=== PATIENT | male | born 1965 | race Caucasian/White ===

== ENCOUNTER 2017-09-04 12:58 | Inpatient (IN) | payer BC ==
[2017-09-04] MEDS: Sodium Chloride 0.9% 10 ML Syringe FLUSH PRN (14:44)
[2017-09-04 15:00] LABS: CHLORIDE,CL 99 mmol/L (101-111); SODIUM,NA 136 mmol/L (135-145)
[2017-09-04] MEDS ORDERED: Acetaminophen 325 MG Tab PO ONE (15:04)
[2017-09-04] MEDS ORDERED: Piperacillin/Tazobactam 3.375 GM in Sodium Chloride 0.9% 100 ML IV ONE (16:14)
[2017-09-04] MEDS ORDERED: Sodium Chloride 0.9% 1,000 ML IV ONE (16:16)
[2017-09-04] MEDS ORDERED: Acetaminophen/HYDROcodone 325-10 MG Tab PO PRN (16:44)
[2017-09-04] MEDS ORDERED: Polyethylene Glycol 3350 Powder 17 GM Packet PO PRN (16:44)
[2017-09-04] MEDS ORDERED: Zolpidem 5 MG Tab PO PRN (16:44)
[2017-09-04] MEDS ORDERED: Morphine 2 MG/ML Syringe IVPUSH PRN (16:44)
[2017-09-04] MEDS ORDERED: Magnesium Hydroxide 400 MG/5 ML Susp 30 ML Cup PO PRN (16:44)
[2017-09-04] MEDS ORDERED: Ibuprofen 600 MG Tab PO PRN (16:44)
[2017-09-04] MEDS ORDERED: Acetaminophen 325 MG Tab PO PRN (16:44)
[2017-09-04] MEDS ORDERED: Ondansetron 4 MG/2 ML SDV IVPUSH PRN (16:44)
[2017-09-04] MEDS ORDERED: Sodium Chloride 0.9% 1,000 ML IV SCH ×2 (16:45→17:00)
[2017-09-04] MEDS ORDERED: Potassium Chloride 10 MEQ Tab.ER PO ONE (17:13)
--- NOTE | 2017-09-04 17:19 | PCM.HP ---
H&P History of Present Illness - General Date of Service: 09/04/17 Admit Problem/Dx: Admission Diagnosis/Problem Admission Diagnosis/Problem Sepsis Source of Information: Patient History Limitations: Reports: No Limitations - History of Present Illness Initial Comments - Free Text/Narative: 52 y/o male with PMH of HTN, morbid obesity, chronic lower extremities edema presents to emergency room for having chills, fatigue, body aches, left lower extremity redness, swelling, warmth, and pain with walking. Symptoms started 2 days ago on afternoon with having chills, fatigue, body aches. Next day he noticed redness in the left foot with pain while walking. His highest recorded temperature at home was 99.3 Fahrenheit. Objective coming to the emergency room and receiving vancomycin he noticed some redness started just above the ankle. Patient denies nausea, vomiting, headache, upper respiratory symptoms, ferrous breath, chest pain, palpitation, dizziness, lightheadedness, abdominal pain, diarrhea, urinary symptoms, unilateral weakness/numbness/ tingling, or any other symptoms or concerns. He denies history of MRSA. Patient on weight loss program and he lost about 60 pounds since last October. Patient denies history of diabetes mellitus, heart disease, lung disease, liver disease , any other chronic disease. Only surgery he had his lipectomy in the right arm. In emergency room his temp was 40 Celsius, heart rate 102. WBC 14.1 with left shift. CRP 15.2. Potassium 3.3. Sodium 136. Creatinine 0.8. BUN 11. Glucose 160. Lactic acid 1.7. LFTs are normal. UA is unremarkable. D-dimer 308. Lower extremity ultrasound did not report DVT. Patient received 1 dose of vancomycin and Tylenol in the emergency room. He was started on IV fluid and Zosyn prior to coming to the floor. Left Feet Pain Score (Numeric/FACES): 3 - Related Data Allergies/Adverse Reactions: Allergies Allergy/AdvReac Type Severity Reaction Status Date / Time No Known Allergies Allergy Verified 09/04/17 16:49 Home Medications: Home Meds Aspirin [Halfprin] 81 mg PO DAILY 09/04/17 [History] Atenolol [Atenolol] 100 mg PO DAILY 09/04/17 [History] Cholecalciferol (Vitamin D3) [Vitamin D] 2,000 intnl unit PO DAILY 09/04/17 [ History] Furosemide [Furosemide] 20 mg PO DAILY 09/04/17 [History] Losartan [Cozaar] 100 mg PO DAILY 09/04/17 [History] Multivitamin [Multi-Day Vitamins] 1 tab PO DAILY 09/04/17 [History] Phentermine HCl 37.5 mg PO DAILY 09/04/17 [History] Past Medical History HEENT History: Reports: Impaired Vision Other HEENT History: wears glasses Cardiovascular History: Reports: Hypertension Respiratory History: Reports: None Gastrointestinal History: Reports: None Genitourinary History: Reports: None Musculoskeletal History: Reports: None Neurological History: Reports: None Psychiatric History: Reports: None Endocrine/Metabolic History: Reports: None Hematologic History: Reports: None Immunologic History: Reports: None Oncologic (Cancer) History: Reports: None Dermatologic History: Reports: None - Infectious Disease History Infectious Disease History: Reports: Chicken Pox - Past Surgical History Head Surgeries/Procedures: Reports: None Social & Family History - Tobacco Use Smoking Status *Q: Never Smoker Years of Tobacco use: 10 Used Tobacco, but Quit: Yes Month Tobacco Last Used: 1981 Second Hand Smoke Exposure: No - Caffeine Use Caffeine Use: Reports: Soda, Tea - Alcohol Use Days Per Week of Alcohol Use: 0 - Recreational Drug Use Recreational Drug Use: No Drug Use in Last 12 Months: No - Living Situation & Occupation Living situation: Reports: Occupation: Employed H&P Review of Systems - Review of Systems: Review Of Systems: ROS reveals no pertinent complaints other than HPI. Exam - Exam Exam: See Below - Vital Signs Vital Signs: Last Vital Signs Temp 40 C H 09/04/17 16:15 Pulse 102 H 09/04/17 16:15 Resp 20 09/04/17 16:15 BP 165/82 H 09/04/17 16:15 Pulse Ox 100 09/04/17 16:15 Weight: 109.769 kg - Exam General: Alert, Oriented, Cooperative, Mild Distress (From his chills). No: Moderate Distress, Severe Distress, Sedated, Lethargic, Obtunded HEENT: Conjunctiva Clear, EACs Clear, EOMI, Hearing Intact, Mucosa Moist & [place] , Nares Patent, Normal Nasal Septum, Posterior Pharynx Clear, Pupils Equal, Pupils Reactive, TMs Clear Neck: Supple, Trachea Midline Lungs: Clear to Auscultation, Normal Respiratory Effort Cardiovascular: Regular Rate, Regular Rhythm, Normal S1, Normal S2 GI/Abdominal Exam: Normal Bowel Sounds, Soft, Non-Tender, No Organomegaly, No Distention, No Abnormal Bruit, No Mass (Male) Exam: Deferred Rectal (Males) Exam: Deferred Back Exam: Normal Inspection, Full Range of Motion. No: CVA Tenderness (L), CVA Tenderness (R) Extremities: Normal Range of Motion, No Pedal Edema, Normal Capillary Refill, Other Skin: Warm, Other (left lowr extremity: Shiny, bright red,warm erythema and tenderness of the left foot with milder erythema just abvoe the ankle. no streaking) Neurological: Cranial Nerves Intact, Strength Equal Bilateral, Normal Speech, Normal Tone Neuro Extensive - Mental Status: Alert, Oriented x3, Normal Mood/Affect Neuro Extensive - Motor, Sensory, Reflexes: CN II-XII Intact Psychiatric: Alert, Normal Affect, Normal Mood - Patient Data Result Diagrams: 09/04/17 14:30 09/04/17 14:30 *Q Meaningful Use (ADM) - VTE *Q VTE Criteria *Q: - Stroke *Q Stroke Criteria *Q: - AMI *Q AMI Criteria *Q: - Problem List (1) Sepsis SNOMED Code(s): 63150978 ICD Code: A41.9 - SEPSIS, UNSPECIFIED ORGANISM Status: Acute Priority: High Current Visit: Yes (2) Erysipelas of lower extremity SNOMED Code(s): 843086878 ICD Code: A46 - ERYSIPELAS Status: Acute Priority: High Current Visit: Yes (3) HTN, Essential hypertension SNOMED Code(s): 96719658 ICD Code: I10 - ESSENTIAL (PRIMARY) HYPERTENSION Status: Chronic Current Visit: No Problem List Initiated/Reviewed/Updated: Yes Orders Last 24hrs: Active Orders 24 hr Category Date Time Status CRP [C-REACTIVE PROTEIN] [CHEM] AM Lab 09/05/17 05:11 Ordered CRP [C-REACTIVE PROTEIN] [CHEM] AM Lab 09/06/17 05:11 Ordered Cholecalciferol (Vitamin D3) [Vitamin D3] Med 09/05/17 09:00 Active 20,000 units PO DAILY Piperacillin/Tazobactam [Zosyn] 3.375 gm Med 09/04/17 23:00 Active Sodium Chloride 0.9% [Normal Saline] 100 ml IV Q6H Sodium Chloride 0.9% [Normal Saline] 1,000 ml Med 09/04/17 17:00 Active IV ASDIRECTED Medication Orders Acetaminophen (Tylenol) 650 mg PO Q4H PRN PRN Reason: Pain (Mild 1-3)/fever Hydrocodone Bitart/Acetaminophen ([place] 325-10 Mg) 0.5 tab PO Q4H PRN PRN Reason: Pain (moderate 4-6) Aspirin (Halfprin) 81 mg PO DAILY [facility] Atenolol (Tenormin) 100 mg PO DAILY [facility] Cholecalciferol (Vitamin D3) 20,000 units PO DAILY [facility] Enoxaparin Sodium (Lovenox) 40 mg SUBCUT DAILY KATHY Furosemide (Lasix) 20 mg PO DAILY [facility] Sodium Chloride (Normal Saline) 1,000 mls @ 999 mls/hr IV .BOLUS ONE Stop: 09/04/17 17:16 Last Admin: 09/04/17 16:24 Dose: 999 mls/hr Sodium Chloride (Normal Saline) 1,000 mls @ 999 mls/hr IV .BOLUS KATHY Piperacillin Sod/Tazobactam (Sod 3.375 gm/ Sodium Chloride) 100 mls @ 200 mls/ hr IV Q6H KATHY Sodium Chloride (Normal Saline) 1,000 mls @ 125 mls/hr IV ASDIRECTED KATHY Stop: 09/05/17 00:59 Ibuprofen (Motrin) 600 mg PO Q6H PRN PRN Reason: Fever Losartan Potassium (Cozaar) 100 mg PO DAILY [facility] Magnesium Hydroxide (Milk Of Magnesia) 30 ml PO Q12H PRN PRN Reason: Constipation Morphine Sulfate (Morphine) 2 mg IVPUSH Q2H PRN PRN Reason: Pain (severe 7-10) Multivitamins (Thera) 1 each PO DAILY [facility] Ondansetron HCl (Zofran) 4 mg IVPUSH Q6H PRN PRN Reason: Nausea/Vomiting Polyethylene Glycol (Miralax) 17 gm PO DAILY PRN PRN Reason: Constipation Sodium Chloride (Saline Flush) 10 ml FLUSH ASDIRECTED PRN PRN Reason: Keep Vein Open Last Admin: 09/04/17 14:44 Dose: 10 ml Zolpidem Tartrate (Ambien) 5 mg PO BEDTIME PRN PRN Reason: Sleep Assessment/Plan Comment:: Impression: 52-year-old male with past medical history significant for hypertension, morbid obesity, chronic bilateral lower extremities edema (left more than right) presents with signs and symptoms consistent with erysipelas and sepsis. He has hypokalemia Plan: Patient received 1 dose of vancomycin in emergency room and started on Zosyn -Fluid resuscitation will give 2 L of the normal saline as a bolus and another liter at 125 mL per hour -Continue Zosyn -Left leg elevation -Potassium chloride 40 mEq by mouth once Patient requested to take his own medications and not the hospital medication due to concern about cost. We are okay with taking his on home medications. We will start his blood -Repeat labs in the morning -Continue blood pressure medications Lovenox for DVT prophylaxis Patient is full code Plan of care was discussed with patient and he verbalized understanding agreed with the
[2017-09-04] MEDS ORDERED: ATENOLOL 50 MG PO SCH (17:28)
--- NOTE | 2017-09-04 17:59 | EDM.PDOC ---
Scribed by Alba Pena 09/04/17 [id number] for Marcia Singh NP ED HPI GENERAL MEDICAL PROBLEM - General Chief Complaint: Lower Extremity Injury/Pain Stated Complaint: [id number] SWOLLEN FOOT RED Time Seen by Provider: 09/04/17 13:41 Source of Information: Reports: Patient, EMS Notes Reviewed, RN, RN Notes Reviewed History Limitations: Reports: No Limitations - History of Present Illness INITIAL COMMENTS - FREE TEXT/NARRATIVE: Patient states that night he became achy and chills which were done on Wednesday afternoon. He slept in the chair. History of left lower leg swelling. He woke up with left foot swollen, redness, pain from left foot up to left groin. Denies chest pain, shortness of breath,abdominal pain, nausea, vomiting and headache. Location: Reports: Lower Extremity, Left Quality: Reports: Ache Severity: Mild Improves with: Reports: None Worsens with: Reports: None Associated Symptoms: Reports: No Other Symptoms Left Feet Pain Score (Numeric/FACES): 3 - Related Data Allergies Allergy/AdvReac Type Severity Reaction Status Date / Time No Known Allergies Allergy Verified 09/04/17 16:49 Home Meds: Home Meds Aspirin [Halfprin] 81 mg PO DAILY 09/04/17 [History] Atenolol [Atenolol] 100 mg PO DAILY 09/04/17 [History] Cholecalciferol (Vitamin D3) [Vitamin D] 2,000 intnl unit PO DAILY 09/04/17 [ History] Furosemide [Furosemide] 20 mg PO DAILY 09/04/17 [History] Losartan [Cozaar] 100 mg PO DAILY 09/04/17 [History] Multivitamin [Multi-Day Vitamins] 1 tab PO DAILY 09/04/17 [History] Phentermine HCl 37.5 mg PO DAILY 09/04/17 [History] Past Medical History HEENT History: Reports: Impaired Vision Other HEENT History: wears glasses Cardiovascular History: Reports: Hypertension Respiratory History: Reports: None Gastrointestinal History: Reports: None Genitourinary History: Reports: None Musculoskeletal History: Reports: None Neurological History: Reports: None Psychiatric History: Reports: None Endocrine/Metabolic History: Reports: None Hematologic History: Reports: None Immunologic History: Reports: None Oncologic (Cancer) History: Reports: None Dermatologic History: Reports: None - Infectious Disease History Infectious Disease History: Reports: Chicken Pox - Past Surgical History Head Surgeries/Procedures: Reports: None Social & Family History - Tobacco Use Smoking Status *Q: Never Smoker Years of Tobacco use: 10 Used Tobacco, but Quit: Yes Month Tobacco Last Used: 1981 Second Hand Smoke Exposure: No - Caffeine Use Caffeine Use: Reports: Soda, Tea - Alcohol Use Days Per Week of Alcohol Use: 0 - Recreational Drug Use Recreational Drug Use: No Drug Use in Last 12 Months: No - Living Situation & Occupation Living situation: Reports: Occupation: Employed Review of Systems - Review of Systems Review Of Systems: ROS reveals no pertinent complaints other than HPI. ED EXAM, GENERAL - Physical Exam Exam: See Below Exam Limited By: No Limitations General Appearance: Alert, WD/WN, No Apparent Distress Eye Exam: Bilateral Eye: Normal Inspection Ears: Normal External Exam, Normal Canal, Hearing Grossly Normal, Normal TMs Nose: Normal Inspection, Normal Mucosa, No Blood Throat/Mouth: Normal Inspection, Normal Lips, Normal Teeth, Normal Gums, Normal Oropharynx, Normal Voice, No Airway Compromise Head: Atraumatic, Normocephalic Neck: Normal Inspection, Supple, Non-Tender, Full Range of Motion Respiratory/Chest: No Respiratory Distress, Lungs Clear, Normal Breath Sounds, No Accessory Muscle Use, Chest Non-Tender Cardiovascular: Normal Peripheral Pulses, Regular Rate, Rhythm, No Edema, No Gallop, No JVD, No Murmur, No Rub GI/Abdominal: Normal Bowel Sounds, Soft, Non-Tender, No Organomegaly, No Distention, No Abnormal Bruit, No Mass (Male) Exam: Deferred Rectal (Males) Exam: Deferred Back Exam: Normal Inspection, Full Range of Motion, NT Extremities: Other (left lower leg/foot swelling. Left foot +2 edema.) Neurological: Alert, Oriented, CN II-XII Intact, Normal Cognition, Normal Gait, Normal Reflexes, No Motor/Sensory Deficits Psychiatric: Normal Affect, Normal Mood Skin Exam: Other (redness and warmth to top of left foot and toe. Redness andwarmth now to back side of lower leg and moving up.) Course - Vital Signs Last Recorded V/S: Last Vital Signs Temp 104 F H 09/04/17 16:15 Pulse 102 H 09/04/17 16:15 Resp 20 09/04/17 16:15 BP 165/82 H 09/04/17 16:15 Pulse Ox 100 09/04/17 16:15 - Orders/Labs/Meds Orders: Active Orders 24 hr Category Date Time Status Peripheral IV Care [RC] . DIRECTED Care 09/04/17 13:55 Active CULTURE BLOOD [BC] Stat Lab 09/04/17 14:15 Received CULTURE BLOOD [BC] Stat Lab 09/04/17 14:30 Results Aspirin [Halfprin] Med 09/04/17 16:45 Active 81 mg PO DAILY Furosemide [Lasix] Med 09/05/17 09:00 Active 20 mg PO DAILY Losartan [Cozaar] Med 09/05/17 09:00 Active 100 mg PO DAILY Multivitamins,Therapeutic [Thera] Med 09/05/17 09:00 Active 1 each PO DAILY Sodium Chloride 0.9% [Saline Flush] Med 09/04/17 13:55 Active 10 ml FLUSH ASDIRECTED PRN Blood Culture x2 Reflex Set [OM.PC] Stat Oth 09/04/17 13:55 Ordered Peripheral IV Insertion Adult [OM.PC] Stat Oth 09/04/17 13:55 Ordered Medication Orders Acetaminophen (Tylenol) 650 mg PO Q4H PRN PRN Reason: Pain (Mild 1-3)/fever Hydrocodone Bitart/Acetaminophen ([place] 325-10 Mg) 0.5 tab PO Q4H PRN PRN Reason: Pain (moderate 4-6) Aspirin (Halfprin) 81 mg PO DAILY [facility] Atenolol (Tenormin) 100 mg PO DAILY [facility] Cholecalciferol (Vitamin D3) 2,000 units PO DAILY [facility] Furosemide (Lasix) 20 mg PO DAILY [facility] Sodium Chloride (Normal Saline) 1,000 mls @ 999 mls/hr IV .BOLUS [facility] Piperacillin Sod/Tazobactam (Sod 3.375 gm/ Sodium Chloride) 100 mls @ 200 mls/ hr IV Q6H [facility] Sodium Chloride (Normal Saline) 1,000 mls @ 125 mls/hr IV ASDIRECTED [facility] Stop: 09/05/17 00:59 Ibuprofen (Motrin) 600 mg PO Q6H PRN PRN Reason: Fever Losartan Potassium (Cozaar) 100 mg PO DAILY [facility] Magnesium Hydroxide (Milk Of Magnesia) 30 ml PO Q12H PRN PRN Reason: Constipation Morphine Sulfate (Morphine) 2 mg IVPUSH Q2H PRN PRN Reason: Pain (severe 7-10) Multivitamins (Thera) 1 each PO DAILY [facility] Ondansetron HCl (Zofran) 4 mg IVPUSH Q6H PRN PRN Reason: Nausea/Vomiting Polyethylene Glycol (Miralax) 17 gm PO DAILY PRN PRN Reason: Constipation Rivaroxaban (Xarelto) 10 mg PO [facility]INNER [facility] Sodium Chloride (Saline Flush) 10 ml FLUSH ASDIRECTED PRN PRN Reason: Keep Vein Open Last Admin: 09/04/17 14:44 Dose: 10 ml Zolpidem Tartrate (Ambien) 5 mg PO BEDTIME PRN PRN Reason: Sleep Labs: Laboratory Tests 09/04/17 09/04/17 09/04/17 Range/Units 13:55 14:15 14:30 WBC 14.1 H (5.0-10.0) 10^3/uL RBC 5.63 (4.6-6.2) 10^6/uL Hgb 16.1 (14.0-18.0) g/dL Hct 47.5 (40.0-54.0) % MCV 84.4 (80-100) fL MCH 28.6 (27.0-34.0) pg MCHC 33.9 (33.0-35.0) g/dL Plt Count 215 (150-450) 10^3/uL Neut % (Auto) 83.3 H (42.2-75.2) % Lymph % (Auto) 7.5 L (20.5-50.1) % [place] % (Auto) 7.4 (2-8) % Eos % (Auto) 1.6 (1.0-3.0) % Baso % (Auto) 0.2 (0.0-1.0) % D-Dimer, Quantitative (0-400) ng/mL Sodium (135-145) mmol/L Potassium (3.6-5.0) mmol/L Chloride (101-111) mmol/L Carbon Dioxide (21.0-31.0) mmol/L Anion Gap BUN (7-18) mg/dL Creatinine (0.6-1.3) mg/dL Est Cr Clr Drug Dosing mL/min Estimated GFR (MDRD) BUN/Creatinine Ratio Glucose (74-105) mg/dL Lactic Acid (0.5-2.2) mmol/L Calcium (8.4-10.2) mg/dl Total Bilirubin (0.2-1.0) mg/dL AST (10-42) IU/L ALT (10-60) IU/L Alkaline Phosphatase (42-121) IU/L C-Reactive Protein 15.2 H (0.0-1.3) mg/dL Total Protein (6.7-8.2) g/dl Albumin (3.2-5.5) g/dl Globulin Albumin/Globulin Ratio Urine Color Yellow (YELLOW) Urine Appearance Slightly cloudy (CLEAR) Urine pH 5.5 (5.0-9.0) Ur Specific [place] 1.025 (1.005-1.030) Urine Protein Negative (NEGATIVE) Urine Glucose (UA) Negative (NEGATIVE) Urine Ketones Negative (NEGATIVE) Urine Occult Blood Negative (NEGATIVE) Urine Nitrite Negative (NEGATIVE) Urine Bilirubin Negative (NEGATIVE) Urine Urobilinogen 1.0 (0.2-1.0) mg/dL Ur Leukocyte Esterase Negative (NEGATIVE) Urine RBC 0-5 /HPF Urine WBC 5-10 H (0-5/HPF) /HPF Ur Epithelial Cells Rare /HPF Amorphous Sediment Occasional (0/HPF) /HPF Urine Bacteria Rare (0-FEW/HPF) /HPF Urine Mucus Few H /LPF 09/04/17 09/04/17 09/04/17 Range/Units 14:30 14:30 14:30 WBC (5.0-10.0) 10^3/uL RBC (4.6-6.2) 10^6/uL Hgb (14.0-18.0) g/dL Hct (40.0-54.0) % MCV (80-100) fL MCH (27.0-34.0) pg MCHC (33.0-35.0) g/dL Plt Count (150-450) 10^3/uL Neut % (Auto) (42.2-75.2) % Lymph % (Auto) (20.5-50.1) % [place] % (Auto) (2-8) % Eos % (Auto) (1.0-3.0) % Baso % (Auto) (0.0-1.0) % D-Dimer, Quantitative 308 (0-400) ng/mL Sodium 136 (135-145) mmol/L Potassium 3.3 L (3.6-5.0) mmol/L Chloride 99 L (101-111) mmol/L Carbon Dioxide 28.0 (21.0-31.0) mmol/L Anion Gap 12.3 BUN 11 (7-18) mg/dL Creatinine 0.8 (0.6-1.3) mg/dL Est Cr Clr Drug Dosing 104.50 mL/min Estimated GFR (MDRD) > 60 BUN/Creatinine Ratio 13.75 Glucose 160 H (74-105) mg/dL Lactic Acid 1.7 (0.5-2.2) mmol/L Calcium 8.7 (8.4-10.2) mg/dl Total Bilirubin 0.9 (0.2-1.0) mg/dL AST 25 (10-42) IU/L ALT 31 (10-60) IU/L Alkaline Phosphatase 57 (42-121) IU/L C-Reactive Protein (0.0-1.3) mg/dL Total Protein 6.3 L (6.7-8.2) g/dl Albumin 3.7 (3.2-5.5) g/dl Globulin 2.6 Albumin/Globulin Ratio 1.42 Urine Color (YELLOW) Urine Appearance (CLEAR) Urine pH (5.0-9.0) Ur Specific [place] (1.005-1.030) Urine Protein (NEGATIVE) Urine Glucose (UA) (NEGATIVE) Urine Ketones (NEGATIVE) Urine Occult Blood (NEGATIVE) Urine Nitrite (NEGATIVE) Urine Bilirubin (NEGATIVE) Urine Urobilinogen (0.2-1.0) mg/dL Ur Leukocyte Esterase (NEGATIVE) Urine RBC /HPF Urine WBC (0-5/HPF) /HPF Ur Epithelial Cells /HPF Amorphous Sediment (0/HPF) /HPF Urine Bacteria (0-FEW/HPF) /HPF Urine Mucus /LPF Meds: Medications Generic Name Dose Route Start Last Admin Trade Name Freq PRN Reason Stop Dose Admin Acetaminophen 650 mg 09/04/17 16:44 Tylenol PO Q4H PRN Pain (Mild 1-3)/fever Hydrocodone Bitart/Acetaminophen 0.5 tab 09/04/17 16:44 [place] 325-10 Mg PO Q4H PRN Pain (moderate 4-6) Aspirin 81 mg 09/04/17 16:45 Halfprin PO DAILY [facility] Atenolol 100 mg 09/04/17 17:28 Tenormin PO DAILY [facility] Cholecalciferol 2,000 units 09/05/17 09:00 Vitamin D3 PO DAILY [facility] Furosemide 20 mg 09/05/17 09:00 Lasix PO DAILY [facility] Sodium Chloride 1,000 mls @ 999 mls/hr 09/04/17 16:45 Normal Saline IV .BOLUS [facility] Piperacillin Sod/Tazobactam 100 mls @ 200 mls/hr 09/04/17 23:00 Sod 3.375 gm/ Sodium Chloride IV Q6H [facility] Sodium Chloride 1,000 mls @ 125 mls/hr 09/04/17 17:00 Normal Saline IV 09/05/17 00:59 ASDIRECTED [facility] Ibuprofen 600 mg 09/04/17 16:44 Motrin PO Q6H PRN Fever Losartan Potassium 100 mg 09/05/17 09:00 Cozaar PO DAILY [facility] Magnesium Hydroxide 30 ml 09/04/17 16:44 Milk Of Magnesia PO Q12H PRN Constipation Morphine Sulfate 2 mg 09/04/17 16:44 Morphine IVPUSH Q2H PRN Pain (severe 7-10) Multivitamins 1 each 09/05/17 09:00 Thera PO DAILY [facility] Ondansetron HCl 4 mg 09/04/17 16:44 Zofran IVPUSH Q6H PRN Nausea/Vomiting Polyethylene Glycol 17 gm 09/04/17 16:44 Miralax PO DAILY PRN Constipation Rivaroxaban 10 mg 09/04/17 18:00 Xarelto PO [facility]DINNER [facility] Sodium Chloride 10 ml 09/04/17 13:55 09/04/17 14:44 Saline Flush FLUSH 10 ml ASDIRECTED PRN Administration Keep Vein Open Zolpidem Tartrate 5 mg 09/04/17 16:44 Ambien PO BEDTIME PRN Sleep Discontinued Medications Generic Name Dose Route Start Last Admin Trade Name Freq PRN Reason Stop Dose Admin Acetaminophen 650 mg 09/04/17 15:04 09/04/17 15:08 Tylenol PO 09/04/17 15:05 650 mg NOW ONE Administration Atenolol 100 mg 09/05/17 09:00 Tenormin PO DAILY [facility] Cholecalciferol 20,000 units 09/05/17 09:00 Vitamin D3 PO DAILY [facility] Enoxaparin Sodium 40 mg 09/05/17 09:00 Lovenox SUBCUT DAILY [facility] Vancomycin HCl 1.5 gm/ Sodium 250 mls @ 167 mls/hr 09/04/17 13:56 09/04/17 14 :44 Chloride IV 09/04/17 15:25 167 mls/hr ONETIME ONE Administration Piperacillin Sod/Tazobactam 100 mls @ 200 mls/hr 09/04/17 16:14 09/04/17 16: 24 Sod 3.375 gm/ Sodium Chloride IV 09/04/17 16:43 200 mls/hr ONETIME ONE Administration Sodium Chloride 1,000 mls @ 999 mls/hr 09/04/17 16:16 09/04/17 16:24 Normal Saline IV 09/04/17 17:16 999 mls/hr .BOLUS ONE Administration Potassium Chloride 40 meq 09/04/17 17:13 Klor-Con 10 PO 09/04/17 17:14 ONETIME ONE - Radiology Interpretation Free Text/Narrative:: Duplex doppler: Negative duplex left lower leg. See rad report. Departure - Departure Time of Disposition: 16:34 Disposition: Admitted As Inpatient 66 Condition: Fair Clinical Impression: Cellulitis Qualifiers: Site of cellulitis: extremity Site of cellulitis of extremity: lower extremity Laterality: left Qualified Code(s): L03.116 - Cellulitis of left lower limb Fever Qualifiers: Fever type: unspecified Qualified Code(s): R50.9 - Fever, unspecified - Discharge Information - My Orders Last 24 Hours: My Active Orders 09/04/17 13:55 Peripheral IV Care [RC] . DIRECTED Sodium Chloride 0.9% [Saline Flush] 10 ml FLUSH ASDIRECTED PRN Blood Culture x2 Reflex Set [OM.PC] Stat Peripheral IV Insertion Adult [OM.PC] Stat 09/04/17 14:15 CULTURE BLOOD [BC] Stat 09/04/17 14:30 CULTURE BLOOD [BC] Stat - Assessment/Plan Last 24 Hours: My Active Orders 09/04/17 13:55 Peripheral IV Care [RC] . DIRECTED Sodium Chloride 0.9% [Saline Flush] 10 ml FLUSH ASDIRECTED PRN Blood Culture x2 Reflex Set [OM.PC] Stat Peripheral IV Insertion Adult [OM.PC] Stat 09/04/17 14:15 CULTURE BLOOD [BC] Stat 09/04/17 14:30 CULTURE BLOOD [BC] Stat I have read and agree with the documentation that has been completed regarding this visit. By signing this record, I attest that the documentation was completed in my physical presence and is an accurate record of the encounter.
[2017-09-04] MEDS: Aspirin 81 MG Tab.EC PO SCH (18:13)
[2017-09-04] MEDS: Rivaroxaban 10 MG Tab PO SCH (18:54)
[2017-09-04] MEDS: VITAMIN D 2000 UNIT PO SCH (22:14)
[2017-09-04] MEDS: Piperacillin/Tazobactam 3.375 GM in Sodium Chloride 0.9% 100 ML IV SCH (22:36)
[2017-09-05] MEDS: Sodium Chloride 0.9% 10 ML Syringe FLUSH PRN ×6 (04:36→23:29)
[2017-09-05] MEDS: Piperacillin/Tazobactam 3.375 GM in Sodium Chloride 0.9% 100 ML IV SCH ×4 (04:37→22:55)
[2017-09-05 07:32] LABS: CHLORIDE,CL 104 mmol/L (101-111); SODIUM,NA 138 mmol/L (135-145)
[2017-09-05] MEDS ORDERED: Atenolol 50 MG Tab PO SCH (09:00)
[2017-09-05] MEDS ORDERED: Multivitamins,Therapeutic Tab PO SCH (09:00)
[2017-09-05] MEDS ORDERED: LOSARTAN 100 MG PO SCH ×2 (09:00)
[2017-09-05] MEDS ORDERED: Cholecalciferol (Vitamin D3) 400 Unit Tab PO SCH ×2 (09:00)
[2017-09-05] MEDS ORDERED: Losartan 50 MG Tab PO SCH (09:00)
[2017-09-05] MEDS ORDERED: VITAMIN D 2000 UNIT PO SCH (09:00)
[2017-09-05] MEDS ORDERED: FUROSEMIDE 20 MG PO SCH (09:00)
[2017-09-05] MEDS ORDERED: Enoxaparin 40 MG/0.4 ML Syringe SUBCUT SCH (09:00)
[2017-09-05] MEDS: Aspirin 81 MG Tab.EC PO SCH (09:47)
--- NOTE | 2017-09-05 10:24 | PCM.PN ---
- General Info Date of Service: 09/05/17 Admission Dx/Problem (Free Text): Admission Diagnosis/Problem Admission Diagnosis/Problem Sepsis Subjective Update: Darius stated that he is feeling better. He thinks his foot redness is improving. He still complaining of leg pain when he walks only. Overnight he denies fever, chills, nausea, vomiting, chest pain, shortness breath, diarrhea, abdominal pain , any other symptoms or complaint. He has been active and ambulating. - Patient Data Vitals - Most Recent: Last Vital Signs Temp 36.2 C 09/05/17 07:49 Pulse 72 09/05/17 07:49 Resp 20 09/05/17 07:49 BP 142/70 H 09/05/17 07:49 Pulse Ox 100 09/05/17 07:49 Weight - Most Recent: 109.769 kg I&O - Last 24 Hours: Intake & Output 09/04/17 09/05/17 09/05/17 22:59 06:59 14:59 Intake Total 2428 1598 Output Total 775 400 Balance 1653 1198 Lab Results Last 24 Hours: Laboratory Results - last 24 hr 09/05/17 09/05/17 09/05/17 Range/Units 06:57 06:57 06:57 WBC 11.4 H (5.0-10.0) 10^3/uL RBC 5.23 (4.6-6.2) 10^6/uL Hgb 14.7 (14.0-18.0) g/dL Hct 44.4 (40.0-54.0) % MCV 84.9 (80-100) fL MCH 28.1 (27.0-34.0) pg MCHC 33.1 (33.0-35.0) g/dL Plt Count 187 (150-450) 10^3/uL Neut % (Auto) 82.7 H (42.2-75.2) % Lymph % (Auto) 7.3 L (20.5-50.1) % [place] % (Auto) 9.3 H (2-8) % Eos % (Auto) 0.4 L (1.0-3.0) % Baso % (Auto) 0.3 (0.0-1.0) % Sodium 138 (135-145) mmol/L Potassium 4.2 (3.6-5.0) mmol/L Chloride 104 (101-111) mmol/L Carbon Dioxide 27.0 (21.0-31.0) mmol/L Anion Gap 11.2 BUN 9 (7-18) mg/dL Creatinine 0.8 (0.6-1.3) mg/dL Est Cr Clr Drug Dosing 104.50 mL/min Estimated GFR (MDRD) > 60 Glucose 127 H (74-105) mg/dL Calcium 8.4 (8.4-10.2) mg/dl C-Reactive Protein 15.0 H (0.0-1.3) mg/dL Med Orders - Current: Current Medications Acetaminophen (Tylenol) 650 mg PO Q4H PRN PRN Reason: Pain (Mild 1-3)/fever Hydrocodone Bitart/Acetaminophen ([place] 325-10 Mg) 0.5 tab PO Q4H PRN PRN Reason: Pain (moderate 4-6) Aspirin (Halfprin) 81 mg PO DAILY [facility] Last Admin: 09/05/17 09:47 Dose: Not Given Atenolol (Tenormin) 100 mg PO DAILY@1800 [facility] Furosemide (Lasix) 20 mg PO DAILY [facility] Last Admin: 09/05/17 09:48 Dose: Not Given Piperacillin Sod/Tazobactam (Sod 3.375 gm/ Sodium Chloride) 100 mls @ 200 mls/ hr IV Q6H [facility] Last Infusion: 09/05/17 05:08 Dose: Infused Ibuprofen (Motrin) 600 mg PO Q6H PRN PRN Reason: Fever Last Admin: 09/04/17 18:54 Dose: 600 mg Magnesium Hydroxide (Milk Of Magnesia) 30 ml PO Q12H PRN PRN Reason: Constipation Morphine Sulfate (Morphine) 2 mg IVPUSH Q2H PRN PRN Reason: Pain (severe 7-10) Multivitamins (Thera) 1 each PO DAILY [facility] Last Admin: 09/05/17 09:49 Dose: Not Given Patients Own Med - (Losartan 100 Mg) 0 each PO DAILY [facility] Last Admin: 09/05/17 09:48 Dose: Not Given Patients Own Med - (Vitamin D 2000 Units) 0 each PO DAILY@1800 [facility] Last Admin: 09/04/17 22:14 Dose: Not Given Non-Formulary Medication (Lutein/Zeaxanthin [Lutein-Zeaxanthin 25-5 Mg Sfgl]) 1 each PO BID [facility] Non-Formulary Medication (Vitamin B Complex & Vit C No.4 [Super B Complex]) 150 mg PO DAILY [facility] Ondansetron HCl (Zofran) 4 mg IVPUSH Q6H PRN PRN Reason: Nausea/Vomiting Polyethylene Glycol (Miralax) 17 gm PO DAILY PRN PRN Reason: Constipation Rivaroxaban (Xarelto) 10 mg PO WITHDINNER [facility] Last Admin: 09/04/17 18:54 Dose: 10 mg Sodium Chloride (Saline Flush) 10 ml FLUSH ASDIRECTED PRN PRN Reason: Keep Vein Open Last Admin: 09/05/17 05:09 Dose: 10 ml Zolpidem Tartrate (Ambien) 5 mg PO BEDTIME PRN PRN Reason: Sleep Discontinued Medications Acetaminophen (Tylenol) 650 mg PO NOW ONE Stop: 09/04/17 15:05 Last Admin: 09/04/17 15:08 Dose: 650 mg Atenolol (Tenormin) 100 mg PO DAILY [facility] Atenolol (Tenormin) 100 mg PO DAILY [facility] Last Admin: 09/04/17 18:14 Dose: 100 mg Cholecalciferol (Vitamin D3) 20,000 units PO DAILY [facility] Cholecalciferol (Vitamin D3) 2,000 units PO DAILY [facility] Enoxaparin Sodium (Lovenox) 40 mg SUBCUT DAILY [facility] Vancomycin HCl 1.5 gm/ Sodium (Chloride) 250 mls @ 167 mls/hr IV ONETIME ONE Stop: 09/04/17 15:25 Last Admin: 09/04/17 14:44 Dose: 167 mls/hr Piperacillin Sod/Tazobactam (Sod 3.375 gm/ Sodium Chloride) 100 mls @ 200 mls/ hr IV ONETIME ONE Stop: 09/04/17 16:43 Last Infusion: 09/04/17 17:58 Dose: Infused Sodium Chloride (Normal Saline) 1,000 mls @ 999 mls/hr IV .BOLUS ONE Stop: 09/04/17 17:16 Last Infusion: 09/04/17 18:20 Dose: Infused Sodium Chloride (Normal Saline) 1,000 mls @ 999 mls/hr IV .BOLUS [facility] Last Admin: 09/04/17 18:24 Dose: 999 mls/hr Sodium Chloride (Normal Saline) 1,000 mls @ 125 mls/hr IV ASDIRECTED [facility] Stop: 09/05/17 00:59 Last Infusion: 09/05/17 04:11 Dose: Infused Losartan Potassium (Cozaar) 100 mg PO DAILY [facility] Patients Own Med (Losartan 100 Mg) 0 each PO DAILY [facility] Patients Own Med - (Vitamin D 2000 Units) 0 each PO DAILY [facility] Potassium Chloride (Klor-Con 10) 40 meq PO ONETIME ONE Stop: 09/04/17 17:14 Last Admin: 09/04/17 18:55 Dose: 40 meq - Exam General: Alert, Oriented, Cooperative, No Acute Distress. No: Mild Distress, Moderate Distress, Severe Distress, Sedated, Lethargic, Obtunded HEENT: Pupils Equal, Pupils Reactive, EOMI, Mucous Membr. Moist/[place] Neck: Supple, Trachea Midline, No JVD Lungs: Clear to Auscultation, Normal Respiratory Effort Cardiovascular: Regular Rate, Regular Rhythm GI/Abdominal Exam: Normal Bowel Sounds, Soft, Non-Tender, No Organomegaly, No Distention, No Abnormal Bruit, No Mass (Male) Exam: Deferred Back Exam: Normal Inspection, Full Range of Motion. No: CVA Tenderness (L), CVA Tenderness (R) Extremities: Normal Range of Motion, Normal Capillary Refill Skin: Rash (left lowr extremity: Shiny, bright red,warm erythema, and tenderness of the left foot which they improved from yesterday. erythema just abvoe the ankle mildly worse. no streaking)). No: Ecchymosis Neurological: No New Focal Deficit Psy/Mental Status: Alert, Normal Affect, Normal Mood - Problem List & Annotations (1) Cellulitis SNOMED Code(s): 988474307 Code(s): L03.90 - CELLULITIS, UNSPECIFIED Status: Acute Current Visit: Yes Qualifiers: Site of cellulitis: extremity Site of cellulitis of extremity: lower extremity Laterality: left Qualified Code(s): L03.116 - Cellulitis of left lower limb (2) Fever SNOMED Code(s): 744644988 Code(s): R50.9 - FEVER, UNSPECIFIED Status: Acute Current Visit: Yes Qualifiers: Fever type: unspecified Qualified Code(s): R50.9 - Fever, unspecified (3) HTN, Essential hypertension SNOMED Code(s): 38835335 Code(s): I10 - ESSENTIAL (PRIMARY) HYPERTENSION Status: Acute Current Visit: No - Problem List Review Problem List Initiated/Reviewed/Updated: Yes - My Orders Last 24 Hours: My Active Orders 09/04/17 18:00 Rivaroxaban [Xarelto] 10 mg PO WITHDINNER 09/04/17 20:00 Non-Formulary Medication [NF Drug] 0 each PO DAILY@1800 09/04/17 23:00 Piperacillin/Tazobactam [Zosyn] 3.375 gm Sodium Chloride 0.9% [Normal Saline] 100 ml IV Q6H 09/05/17 09:00 Non-Formulary Medication [NF Drug] 0 each PO DAILY 09/05/17 18:00 Atenolol [Tenormin] 100 mg PO DAILY@1800 09/05/17 21:00 Lutein/Zeaxanthin [Lutein-Zeaxanthin 25-5 mg Sfgl] 1 each PO BID 09/06/17 05:11 BASIC METABOLIC PANEL,BMP [CHEM] AM CBC WITH AUTO DIFF [HEME] AM CRP [C-REACTIVE PROTEIN] [CHEM] AM CRP [C-REACTIVE PROTEIN] [CHEM] AM 09/06/17 09:00 Vitamin B Complex & Vit C No.4 [Super B Complex] 150 mg PO DAILY - Plan Plan:: Impression: 52-year-old male with past medical history significant for hypertension, morbid obesity, chronic bilateral lower extremities edema (left more than right) presents with signs and symptoms consistent with erysipelas and sepsis. -Hypokalemia, resolved -Blood culture grew gram-positive diplococci Plan: Patient received 1 dose of vancomycin in emergency room and started on Zosyn Fluid resuscitation of 3 L of normal saline was received on admission -Continue Zosyn -Left leg elevation -Repeat labs in the morning Patient declined Lovenox for DVT prophylaxis because he does not want shots but wanted xarelto for DVT prophylaxis Patient is full code
[2017-09-05] MEDS ORDERED: Aspirin 81 MG Tab.EC PO SCH (18:00)
[2017-09-05] MEDS: ASPIRIN 81 MG PO SCH (18:06)
[2017-09-05] MEDS: MINERALS PO SCH (18:08)
[2017-09-05] MEDS: LUTEIN PO SCH (18:08)
[2017-09-05] MEDS: VIT A C PO SCH (18:08)
[2017-09-05] MEDS: [UNRECOGNIZED DRUG - OTHER] PO SCH (18:08)
[2017-09-05] MEDS: VITAMIN D 2000 UNIT PO SCH (18:09)
[2017-09-05] MEDS: ATENOLOL 50 MG PO SCH (18:12)
[2017-09-05] MEDS: Rivaroxaban 10 MG Tab PO SCH (18:19)
[2017-09-06] MEDS: Sodium Chloride 0.9% 10 ML Syringe FLUSH PRN ×4 (05:08→17:40)
[2017-09-06] MEDS: Piperacillin/Tazobactam 3.375 GM in Sodium Chloride 0.9% 100 ML IV SCH ×4 (05:10→22:54)
[2017-09-06] MEDS ORDERED: LOSARTAN 100 MG PO SCH ×2 (06:30→11:03)
[2017-09-06] MEDS ORDERED: [UNRECOGNIZED DRUG - OTHER] PO SCH (06:30)
[2017-09-06] MEDS: FUROSEMIDE 20 MG PO SCH (06:38)
[2017-09-06] MEDS: [UNRECOGNIZED DRUG - OTHER] PO SCH (06:43)
[2017-09-06] MEDS: VIT A C PO SCH ×2 (06:46→18:10)
[2017-09-06] MEDS: LUTEIN PO SCH ×2 (06:46→18:10)
[2017-09-06] MEDS: [UNRECOGNIZED DRUG - OTHER] PO SCH ×2 (06:46→18:10)
[2017-09-06] MEDS: MINERALS PO SCH ×2 (06:46→18:10)
[2017-09-06] MEDS: Multivitamins,Therapeutic Tab PO SCH (06:47)
[2017-09-06 07:16] LABS: CHLORIDE,CL 102 mmol/L (101-111); SODIUM,NA 138 mmol/L (135-145)
--- NOTE | 2017-09-06 08:32 | PCM.PN ---
- General Info Date of Service: 09/06/17 Admission Dx/Problem (Free Text): Admission Diagnosis/Problem Admission Diagnosis/Problem Sepsis Subjective Update: Darius stated that he is feeling better. He thinks his foot redness is improving. He still complaining of leg pain when he walks only. the pain is still sever when he start the walk for the first few minutes. Overnight he denies fever, chills, nausea, vomiting, chest pain, shortness of breath, diarrhea, abdominal pain, any other symptoms or complaint. He has been active and ambulating. - Patient Data Vitals - Most Recent: Last Vital Signs Temp 36.6 C 09/06/17 08:03 Pulse 72 09/06/17 08:03 Resp 20 09/06/17 08:03 BP 157/78 H 09/06/17 08:03 Pulse Ox 100 09/06/17 08:03 Weight - Most Recent: 109.769 kg I&O - Last 24 Hours: Intake & Output 09/05/17 09/06/17 09/06/17 22:59 06:59 14:59 Intake Total 338 503 Output Total 3250 1100 Balance -2912 -597 Lab Results Last 24 Hours: Laboratory Results - last 24 hr 09/06/17 09/06/17 09/06/17 Range/Units 06:28 06:28 06:28 WBC 12.8 H (5.0-10.0) 10^3/uL RBC 5.54 (4.6-6.2) 10^6/uL Hgb 15.7 (14.0-18.0) g/dL Hct 46.6 (40.0-54.0) % MCV 84.1 (80-100) fL MCH 28.3 (27.0-34.0) pg MCHC 33.7 (33.0-35.0) g/dL Plt Count 254 (150-450) 10^3/uL Neut % (Auto) 72.6 (42.2-75.2) % Lymph % (Auto) 11.7 L (20.5-50.1) % [place] % (Auto) 13.2 H (2-8) % Eos % (Auto) 2.2 (1.0-3.0) % Baso % (Auto) 0.3 (0.0-1.0) % Sodium 138 (135-145) mmol/L Potassium 4.1 (3.6-5.0) mmol/L Chloride 102 (101-111) mmol/L Carbon Dioxide 26.0 (21.0-31.0) mmol/L Anion Gap 14.1 BUN 13 (7-18) mg/dL Creatinine 0.9 (0.6-1.3) mg/dL Est Cr Clr Drug Dosing 92.89 mL/min Estimated GFR (MDRD) > 60 Glucose 120 H (74-105) mg/dL Calcium 8.8 (8.4-10.2) mg/dl C-Reactive Protein 15.4 H (0.0-1.3) mg/dL Med Orders - Current: Current Medications Acetaminophen (Tylenol) 650 mg PO Q4H PRN PRN Reason: Pain (Mild 1-3)/fever Hydrocodone Bitart/Acetaminophen ([place] 325-10 Mg) 0.5 tab PO Q4H PRN PRN Reason: Pain (moderate 4-6) Aspirin (Halfprin) 81 mg PO DAILY@1800 [facility] Last Admin: 09/05/17 18:06 Dose: 81 mg Atenolol (Tenormin) 100 mg PO DAILY@1800 [facility] Last Admin: 09/05/17 18:12 Dose: 100 mg Furosemide (Lasix) 20 mg PO DAILY@0630 [facility] Last Admin: 09/06/17 06:38 Dose: 20 mg Piperacillin Sod/Tazobactam (Sod 3.375 gm/ Sodium Chloride) 100 mls @ 200 mls/ hr IV Q6H [facility] Last Infusion: 09/06/17 05:50 Dose: Infused Ibuprofen (Motrin) 600 mg PO Q6H PRN PRN Reason: Fever Last Admin: 09/04/17 18:54 Dose: 600 mg Magnesium Hydroxide (Milk Of Magnesia) 30 ml PO Q12H PRN PRN Reason: Constipation Morphine Sulfate (Morphine) 2 mg IVPUSH Q2H PRN PRN Reason: Pain (severe 7-10) Multivitamins (Thera) 1 each PO DAILY@0630 [facility] Last Admin: 09/06/17 06:47 Dose: Not Given Multivitamins/Minerals (I-Nnamdi) 1 each PO BID@0630,1800 [facility] Last Admin: 09/06/17 06:46 Dose: 1 each Patients Own Med - (Vitamin D 2000 Units) 0 each PO DAILY@1800 [facility] Last Admin: 09/05/17 18:09 Dose: 1 each Patients Own Med - (Losartan 100 Mg) 0 each PO DAILY@0630 [facility] Last Admin: 09/06/17 06:47 Dose: 1 each Ondansetron HCl (Zofran) 4 mg IVPUSH Q6H PRN PRN Reason: Nausea/Vomiting Polyethylene Glycol (Miralax) 17 gm PO DAILY PRN PRN Reason: Constipation Rivaroxaban (Xarelto) 10 mg PO WITHDINNER [facility] Last Admin: 09/05/17 18:19 Dose: 10 mg Sodium Chloride (Saline Flush) 10 ml FLUSH ASDIRECTED PRN PRN Reason: Keep Vein Open Last Admin: 09/06/17 05:51 Dose: 10 ml Vitamin B Complex (Vitamin B Complex) 0 each PO DAILY@0630 [facility] Last Admin: 09/06/17 06:43 Dose: 1 each Zolpidem Tartrate (Ambien) 5 mg PO BEDTIME PRN PRN Reason: Sleep Discontinued Medications Acetaminophen (Tylenol) 650 mg PO NOW ONE Stop: 09/04/17 15:05 Last Admin: 09/04/17 15:08 Dose: 650 mg Aspirin (Halfprin) 81 mg PO DAILY [facility] Last Admin: 09/05/17 09:47 Dose: Not Given Atenolol (Tenormin) 100 mg PO DAILY [facility] Atenolol (Tenormin) 100 mg PO DAILY [facility] Last Admin: 09/04/17 18:14 Dose: 100 mg Cholecalciferol (Vitamin D3) 20,000 units PO DAILY [facility] Cholecalciferol (Vitamin D3) 2,000 units PO DAILY [facility] Enoxaparin Sodium (Lovenox) 40 mg SUBCUT DAILY [facility] Furosemide (Lasix) 20 mg PO DAILY [facility] Last Admin: 09/05/17 09:48 Dose: Not Given Vancomycin HCl 1.5 gm/ Sodium (Chloride) 250 mls @ 167 mls/hr IV ONETIME ONE Stop: 09/04/17 15:25 Last Admin: 09/04/17 14:44 Dose: 167 mls/hr Piperacillin Sod/Tazobactam (Sod 3.375 gm/ Sodium Chloride) 100 mls @ 200 mls/ hr IV ONETIME ONE Stop: 09/04/17 16:43 Last Infusion: 09/04/17 17:58 Dose: Infused Sodium Chloride (Normal Saline) 1,000 mls @ 999 mls/hr IV .BOLUS ONE Stop: 09/04/17 17:16 Last Infusion: 09/04/17 18:20 Dose: Infused Sodium Chloride (Normal Saline) 1,000 mls @ 999 mls/hr IV .BOLUS [facility] Last Admin: 09/04/17 18:24 Dose: 999 mls/hr Sodium Chloride (Normal Saline) 1,000 mls @ 125 mls/hr IV ASDIRECTED [facility] Stop: 09/05/17 00:59 Last Infusion: 09/05/17 04:11 Dose: Infused Losartan Potassium (Cozaar) 100 mg PO DAILY [facility] Multivitamins (Thera) 1 each PO DAILY [facility] Last Admin: 09/05/17 09:49 Dose: Not Given Patients Own Med (Losartan 100 Mg) 0 each PO DAILY [facility] Patients Own Med - (Vitamin D 2000 Units) 0 each PO DAILY [facility] Patients Own Med - (Losartan 100 Mg) 0 each PO DAILY [facility] Last Admin: 09/05/17 09:48 Dose: Not Given Potassium Chloride (Klor-Con 10) 40 meq PO ONETIME ONE Stop: 09/04/17 17:14 Last Admin: 09/04/17 18:55 Dose: 40 meq Vitamin B Complex (Vitamin B Complex) 0 each PO DAILY@0630 [facility] - Exam General: Alert, Oriented, Cooperative, No Acute Distress. No: Mild Distress, Moderate Distress, Severe Distress, Sedated, Lethargic, Obtunded HEENT: Pupils Equal, Pupils Reactive, EOMI, Mucous Membr. Moist/[place] Neck: Supple, Trachea Midline, No JVD Lungs: Clear to Auscultation, Normal Respiratory Effort Cardiovascular: Regular Rate, Regular Rhythm GI/Abdominal Exam: Normal Bowel Sounds, Soft, Non-Tender, No Organomegaly, No Distention, No Abnormal Bruit, No Mass (Male) Exam: Deferred Back Exam: Normal Inspection, Full Range of Motion Extremities: Normal Range of Motion, Normal Capillary Refill Skin: Ecchymosis, Other (left lowr extremity: Shiny, bright red,warm erythema, and tenderness of the left foot which they slightly improved from yesterday. erythema just abvoe the ankle mildly worse. no streaking) - Problem List & Annotations (1) Cellulitis SNOMED Code(s): 599208914 Code(s): L03.90 - CELLULITIS, UNSPECIFIED Status: Acute Current Visit: Yes Qualifiers: Site of cellulitis: extremity Site of cellulitis of extremity: lower extremity Laterality: left Qualified Code(s): L03.116 - Cellulitis of left lower limb (2) Fever SNOMED Code(s): 211544802 Code(s): R50.9 - FEVER, UNSPECIFIED Status: Acute Current Visit: Yes Qualifiers: Fever type: unspecified Qualified Code(s): R50.9 - Fever, unspecified (3) HTN, Essential hypertension SNOMED Code(s): 06098115 Code(s): I10 - ESSENTIAL (PRIMARY) HYPERTENSION Status: Acute Current Visit: No - Problem List Review Problem List Initiated/Reviewed/Updated: Yes - My Orders Last 24 Hours: My Active Orders 09/05/17 18:00 Aspirin [Halfprin] 81 mg PO DAILY@1800 Atenolol [Tenormin] 100 mg PO DAILY@1800 Lutein/Minerals/Vit A,C & E [I-Nnamdi] 1 each PO BID@0630,1800 09/06/17 06:30 Furosemide [Lasix] 20 mg PO DAILY@0630 Multivitamins,Therapeutic [Thera] 1 each PO DAILY@0630 Non-Formulary Medication [NF Drug] 0 each PO DAILY@0630 Vitamin B Complex 0 each PO DAILY@0630 09/07/17 05:11 CBC WITH AUTO DIFF [HEME] AM CRP [C-REACTIVE PROTEIN] [CHEM] AM - Plan Plan:: Impression: 52-year-old male with past medical history significant for hypertension, morbid obesity, chronic bilateral lower extremities edema (left more than right) presents with signs and symptoms consistent with erysipelas and sepsis. -Hypokalemia, resolved -Blood culture grew gram-positive diplococci -WBC is trending downward -CRP still elevated Plan: Patient received 1 dose of vancomycin in emergency room and started on Zosyn Fluid resuscitation of 3 L of normal saline was received on admission -Continue Zosyn -Left leg elevation -Repeat labs in the morning Patient declined Lovenox for DVT prophylaxis because he does not want shots but wanted xarelto for DVT prophylaxis Patient is full code
[2017-09-06] MEDS ORDERED: VITAMIN D 2000 UNIT PO SCH (11:01)
[2017-09-06] MEDS: ATENOLOL 50 MG PO SCH (18:06)
[2017-09-06] MEDS: ASPIRIN 81 MG PO SCH (18:09)
[2017-09-06] MEDS: Rivaroxaban 10 MG Tab PO SCH (18:14)
[2017-09-07] MEDS: Piperacillin/Tazobactam 3.375 GM in Sodium Chloride 0.9% 100 ML IV SCH ×2 (05:43→10:37)
[2017-09-07] MEDS: [UNRECOGNIZED DRUG - OTHER] PO SCH (06:28)
[2017-09-07] MEDS: LUTEIN PO SCH (06:28)
[2017-09-07] MEDS: VIT A C PO SCH (06:28)
[2017-09-07] MEDS: MINERALS PO SCH (06:28)
[2017-09-07] MEDS: FUROSEMIDE 20 MG PO SCH (06:29)
[2017-09-07] MEDS: [UNRECOGNIZED DRUG - OTHER] PO SCH (06:30)
[2017-09-07] MEDS: Multivitamins,Therapeutic Tab PO SCH (06:32)
--- NOTE | 2017-09-07 09:10 | PCM.DCSUM1 ---
Discharge Summary - Hospital Course Free Text/Narrative:: 52 y/o male with PMH of HTN, morbid obesity, chronic lower extremities edema presents to emergency room for having chills, fatigue, body aches, left lower extremity redness, swelling, warmth, and pain with walking. Symptoms started 2 days prior to admission with fever, chills, fatigue, body aches. Next day he noticed redness in the left foot with pain while walking. His highest recorded temperature at home was 99.3 Fahrenheit. After coming to the emergency room and receiving vancomycin he noticed some redness started just above the ankle. Patient denied nausea, vomiting, headache, upper respiratory symptoms, ferrous breath, chest pain, palpitation, dizziness, lightheadedness, abdominal pain, diarrhea, urinary symptoms, unilateral weakness/numbness/tingling, or any other symptoms or concerns. He denies history of MRSA. Patient on weight loss program and he lost about 60 pounds since last October. Patient denied history of diabetes mellitus, heart disease, lung disease, liver disease, any other chronic disease. Only surgery he had was lipectomy in the right arm. In emergency room his temp was 40 Celsius, heart rate 102. WBC 14.1 with left shift. CRP 15.2. Potassium 3.3. Sodium 136. Creatinine 0.8. BUN 11. Glucose 160. Lactic acid 1.7. LFTs are normal. UA is unremarkable. D-dimer 308. Lower extremity ultrasound did not report DVT. Patient received 1 dose of vancomycin and Tylenol in the emergency room. He was started on IV fluid and Zosyn prior to coming to the floor. He was diagnosed with sepsis and erysipelas and Zosyn was continued throughout admission. During hospitalization and overnight patient did not have any fever, chills, nausea, vomiting, headache, upper respiratory symptoms, ferrous breath, chest pain, palpitation, dizziness, lightheadedness, abdominal pain, diarrhea, urinary symptoms, unilateral weakness /numbness/tingling, or any other symptoms or concerns. One of his blood culture (anaerobic, grew Staphylococcus Agalaciae group B which is sensitive to penicillin. Patient redness and pain markedly improved. He wants to go home today. He was discharged on Keflex for 10 days and was advised to follow-up with primary care provider within 7 days and come back to the emergency room" with clinic if he started having fever or worsening of his skin infection. Patient had ultrasound Doppler of the leg on admission and he did not have DVT. He was started on xarelto 10 mg daily for DVT prophylaxis. - Discharge Data Discharge Date: 09/07/17 Discharge Disposition: Home, Self-Care 01 Condition: Good - Discharge Diagnosis/Problem(s) (1) Cellulitis SNOMED Code(s): 926350100 ICD Code: L03.90 - CELLULITIS, UNSPECIFIED Status: Acute Current Visit: Yes Qualifiers: Site of cellulitis: extremity Site of cellulitis of extremity: lower extremity Laterality: left Qualified Code(s): L03.116 - Cellulitis of left lower limb (2) Fever SNOMED Code(s): 791853340 ICD Code: R50.9 - FEVER, UNSPECIFIED Status: Resolved Current Visit: Yes Qualifiers: Fever type: unspecified Qualified Code(s): R50.9 - Fever, unspecified (3) HTN, Essential hypertension SNOMED Code(s): 65866192 ICD Code: I10 - ESSENTIAL (PRIMARY) HYPERTENSION Status: Chronic Current Visit: No - Patient Instructions Diet: Heart Healthy Diet Activity: As Tolerated Driving: May Drive Today Showering/Bathing: May Shower Notify Provider of: Fever, Swelling and Redness (if the get worse), Nausea and/ or Vomiting - Discharge Plan Prescriptions/Med Rec: Cephalexin [Keflex] 500 mg PO Q6HR 10 Days #40 cap Home Medications: Home Meds Aspirin [Halfprin] 81 mg PO DAILY 09/04/17 [History] Atenolol 100 mg PO DAILY 09/04/17 [History] Cholecalciferol (Vitamin D3) [Vitamin D] 2,000 intnl unit PO DAILY 09/04/17 [ History] Furosemide 20 mg PO DAILY 09/04/17 [History] Losartan [Cozaar] 100 mg PO DAILY 09/04/17 [History] Lutein/Zeaxanthin [Lutein-Zeaxanthin 25-5 mg Sfgl] 1 each PO BID 09/04/17 [ History] Multivitamin [Multi-Day Vitamins] 1 tab PO DAILY 09/04/17 [History] Vitamin B Complex & Vit C No.4 [Super B Complex] 150 mg PO DAILY 09/04/17 [ History] Cephalexin [Keflex] 500 mg PO Q6HR 10 Days #40 cap 09/07/17 [Rx] Patient's Own Medication [Ptom] 0 each PO DAILY@0630 each 09/07/17 [Rx] Patient's Own Medication [Ptom] 0 each PO DAILY@1800 each 09/07/17 [Rx] Patient Handouts: Cellulitis, Adult, [id number], Erysipelas Referrals: PCP,None [Ordering Only Provider] - - General Info Date of Service: 09/07/17 Admission Dx/Problem (Free Text: Admission Diagnosis/Problem Admission Diagnosis/Problem Sepsis Subjective Update: Overnight patient denies nausea, vomiting, headache, upper respiratory symptoms , ferrous breath, chest pain, palpitation, dizziness, lightheadedness, abdominal pain, diarrhea, urinary symptoms, unilateral weakness/numbness/ tingling, or any other symptoms or concerns. - Patient Data Vitals - Most Recent: Last Vital Signs Temp 35.8 C 09/07/17 08:01 Pulse 66 09/07/17 08:01 Resp 20 09/07/17 08:01 BP 149/65 H 09/07/17 08:01 Pulse Ox 99 09/07/17 08:01 Weight - Most Recent: 109.769 kg I&O - Last 24 hours: Intake & Output 09/06/17 09/07/17 09/07/17 22:59 06:59 14:59 Intake Total 333 503 Output Total 600 1100 Balance -267 -597 Lab Results - Last 24 hrs: Laboratory Results - last 24 hr 09/07/17 09/07/17 Range/Units 06:00 06:00 WBC 9.9 (5.0-10.0) 10^3/uL RBC 5.35 (4.6-6.2) 10^6/uL Hgb 14.9 (14.0-18.0) g/dL Hct 45.1 (40.0-54.0) % MCV 84.3 (80-100) fL MCH 27.9 (27.0-34.0) pg MCHC 33.0 (33.0-35.0) g/dL Plt Count 222 (150-450) 10^3/uL Neut % (Auto) 71.7 (42.2-75.2) % Lymph % (Auto) 13.2 L (20.5-50.1) % [place] % (Auto) 11.7 H (2-8) % Eos % (Auto) 2.9 (1.0-3.0) % Baso % (Auto) 0.5 (0.0-1.0) % C-Reactive Protein 8.8 H (0.0-1.3) mg/dL Med Orders - Current: Current Medications Acetaminophen (Tylenol) 650 mg PO Q4H PRN PRN Reason: Pain (Mild 1-3)/fever Hydrocodone Bitart/Acetaminophen ([place] 325-10 Mg) 0.5 tab PO Q4H PRN PRN Reason: Pain (moderate 4-6) Aspirin (Halfprin) 81 mg PO DAILY@1800 [facility] Last Admin: 09/06/17 18:09 Dose: 81 mg Atenolol (Tenormin) 100 mg PO DAILY@1800 [facility] Last Admin: 09/06/17 18:06 Dose: 100 mg Furosemide (Lasix) 20 mg PO DAILY@0630 [facility] Last Admin: 09/07/17 06:29 Dose: 20 mg Piperacillin Sod/Tazobactam (Sod 3.375 gm/ Sodium Chloride) 100 mls @ 200 mls/ hr IV Q6H [facility] Last Admin: 09/07/17 05:43 Dose: 200 mls/hr Ibuprofen (Motrin) 600 mg PO Q6H PRN PRN Reason: Fever Last Admin: 09/04/17 18:54 Dose: 600 mg Magnesium Hydroxide (Milk Of Magnesia) 30 ml PO Q12H PRN PRN Reason: Constipation Morphine Sulfate (Morphine) 2 mg IVPUSH Q2H PRN PRN Reason: Pain (severe 7-10) Multivitamins (Thera) 1 each PO DAILY@0630 [facility] Last Admin: 09/07/17 06:32 Dose: Not Given Multivitamins/Minerals (I-Nnamdi) 1 each PO BID@0630,1800 [facility] Last Admin: 09/07/17 06:28 Dose: 1 each Ondansetron HCl (Zofran) 4 mg IVPUSH Q6H PRN PRN Reason: Nausea/Vomiting Vitamin D 2000 Units ( Pt Own Med) 0 each PO DAILY@1800 [facility] Last Admin: 09/06/17 18:09 Dose: 1 each Losartan 100 Mg (Pt Own Med) 0 each PO DAILY@0630 [facility] Last Admin: 09/07/17 06:29 Dose: 1 each Polyethylene Glycol (Miralax) 17 gm PO DAILY PRN PRN Reason: Constipation Rivaroxaban (Xarelto) 10 mg PO WITHDINNER [facility] Last Admin: 09/06/17 18:14 Dose: 10 mg Sodium Chloride (Saline Flush) 10 ml FLUSH ASDIRECTED PRN PRN Reason: Keep Vein Open Last Admin: 09/06/17 17:40 Dose: 10 ml Vitamin B Complex (Vitamin B Complex) 0 each PO DAILY@0630 [facility] Last Admin: 09/07/17 06:30 Dose: 1 each Zolpidem Tartrate (Ambien) 5 mg PO BEDTIME PRN PRN Reason: Sleep Discontinued Medications Acetaminophen (Tylenol) 650 mg PO NOW ONE Stop: 09/04/17 15:05 Last Admin: 09/04/17 15:08 Dose: 650 mg Aspirin (Halfprin) 81 mg PO DAILY [facility] Last Admin: 09/05/17 09:47 Dose: Not Given Atenolol (Tenormin) 100 mg PO DAILY [facility] Atenolol (Tenormin) 100 mg PO DAILY [facility] Last Admin: 09/04/17 18:14 Dose: 100 mg Cholecalciferol (Vitamin D3) 20,000 units PO DAILY [facility] Cholecalciferol (Vitamin D3) 2,000 units PO DAILY [facility] Enoxaparin Sodium (Lovenox) 40 mg SUBCUT DAILY [facility] Furosemide (Lasix) 20 mg PO DAILY [facility] Last Admin: 09/05/17 09:48 Dose: Not Given Vancomycin HCl 1.5 gm/ Sodium (Chloride) 250 mls @ 167 mls/hr IV ONETIME ONE Stop: 09/04/17 15:25 Last Admin: 09/04/17 14:44 Dose: 167 mls/hr Piperacillin Sod/Tazobactam (Sod 3.375 gm/ Sodium Chloride) 100 mls @ 200 mls/ hr IV ONETIME ONE Stop: 09/04/17 16:43 Last Infusion: 09/04/17 17:58 Dose: Infused Sodium Chloride (Normal Saline) 1,000 mls @ 999 mls/hr IV .BOLUS ONE Stop: 09/04/17 17:16 Last Infusion: 09/04/17 18:20 Dose: Infused Sodium Chloride (Normal Saline) 1,000 mls @ 999 mls/hr IV .BOLUS [facility] Last Admin: 09/04/17 18:24 Dose: 999 mls/hr Sodium Chloride (Normal Saline) 1,000 mls @ 125 mls/hr IV ASDIRECTED [facility] Stop: 09/05/17 00:59 Last Infusion: 09/05/17 04:11 Dose: Infused Losartan Potassium (Cozaar) 100 mg PO DAILY [facility] Multivitamins (Thera) 1 each PO DAILY [facility] Last Admin: 09/05/17 09:49 Dose: Not Given Patients Own Med (Losartan 100 Mg) 0 each PO DAILY [facility] Patients Own Med - (Vitamin D 2000 Units) 0 each PO DAILY [facility] Patients Own Med - (Losartan 100 Mg) 0 each PO DAILY [facility] Last Admin: 09/05/17 09:48 Dose: Not Given Patients Own Med - (Vitamin D 2000 Units) 0 each PO DAILY@1800 [facility] Last Admin: 09/05/17 18:09 Dose: 1 each Patients Own Med - (Losartan 100 Mg) 0 each PO DAILY@0630 [facility] Last Admin: 09/06/17 06:47 Dose: 1 each Potassium Chloride (Klor-Con 10) 40 meq PO ONETIME ONE Stop: 09/04/17 17:14 Last Admin: 09/04/17 18:55 Dose: 40 meq Vitamin B Complex (Vitamin B Complex) 0 each PO DAILY@0630 [facility] - Exam General: Reports: Alert, Oriented, Cooperative, No Acute Distress. Denies: Mild Distress, Moderate Distress, Severe Distress, Sedated, Lethargic, Obtunded HEENT: Reports: Pupils Equal, Pupils Reactive, EOMI, Mucous Membr. Moist/[place] Neck: Reports: Supple, Trachea Midline Lungs: Reports: Clear to Auscultation, Normal Respiratory Effort. Denies: Decreased Breath Sounds, Crackles, Rales, Rhonchi, Rub, Stridor, Wheezing Cardiovascular: Reports: Regular Rate, Regular Rhythm, No Murmurs GI/Abdominal Exam: Normal Bowel Sounds, Soft, Non-Tender, No Organomegaly, No Distention, No Abnormal Bruit, No Mass (Male) Exam: Deferred Rectal (Males) Exam: Deferred Back Exam: Reports: Normal Inspection, Full Range of Motion. Denies: CVA Tenderness (L), CVA Tenderness (R) Extremities: Normal Range of Motion, No Pedal Edema, Normal Capillary Refill Skin: Reports: Rash (Redness, warmth, tenderness of left lower extremity improved.). Denies: Moist Neurological: Reports: No New Focal Deficit, Normal Speech, Normal Tone Psy/Mental Status: Reports: Alert, Normal Affect, Normal Mood *Q Meaningful Use (DIS) - VTE *Q VTE Criteria *Q: - Stroke *Q Stroke Criteria *Q: - AMI *Q AMI Criteria *Q:
== END 2017-09-07 11:35 | disposition home or self-care (01) | DRG 720 ==
LOC: DL.ED 12:58 → DL.MS 16:26 → UNDOADMOB 16:26 → INTOOBSV 16:44 → DL.MS 16:44 → OBSVTOIN 16:44
PROVIDERS: ADMIT Family Medicine; ATTEND Family Medicine
DX: A41.1 Sepsis due to other specified staphylococcus (principal); L03.116 Cellulitis of left lower limb; A46 Erysipelas; E87.6 Hypokalemia; I10 Essential (primary) hypertension; E66.01 Morbid (severe) obesity due to excess calories; H54.7 Unspecified visual loss; Z79.82 Long term (current) use of aspirin; Z79.899 Other long term (current) drug therapy
CPT/HCPCS: 36415; 80048; 80053; 81001; 83605; 85025; 85379; 86140; 87040; 87077; 87186; 93971; 96365; 96367; 99285; A9270-GY; J2543; J3370; J7030; J7040; J7050